=== PATIENT | female | born 1980 | race Caucasian/White ===

== ENCOUNTER 2018-03-10 01:47 | Inpatient (IN) | payer BC, SELFPAY ==
[2018-03-10] MEDS: Oxytocin 10 UNITS/ML Vial IM (03:09)
[2018-03-10 03:39] VITALS: BMI 31.9
--- NOTE | 2018-03-10 03:48 | HP.PCM_ITS ---
- Problem List (1) GDM (gestational diabetes mellitus), class A1 Status: Acute (2) History of macrosomia in in prior , currently Status: Acute (3) History of precipitous delivery Status: Acute (4) History of gestational diabetes in prior , currently Status: Acute (5) Advanced maternal age (AMA) in Status: Acute History Date of Admission: 03/10/18 Final TIFFANY: 03/08/18 Gestational age: 40 Weeks and 2 Days History of this : This is a 37 year-old, G [3], P [2002], at 40 weeks 2 days gestational age by first trimester U/S. Transfer of care at 29 weeks. Presented to L&D with complaint of SROM for clear fluid at 0100. Upon arrival to L&D patient in wheel chair and refusing to get out. Contractions every 2-3 minutes, strong, and breathing through contractions. Requesting natural childbirth, unmedicated. at bedside. Allergies lactose Allergy (Verified 03/10/18 03:40) Abd cramps/diarrhea Penicillins Allergy (Verified 03/10/18 03:40) Unknown Smoking Status: Never smoker Alcohol: None Number of Fetus(es): 1 Heart Tracin, moderate variability, accels, variable decel, Category 2 TOCO Analysis: Every 2-3 minutes, lasting 60-90 seconds, strong History Past Pregnancies: Past Pregnancies Delivery Date Name GA/Weeks Outcome Route Weight Infant Gender Labor Length Anesthesia Delivery Location Provider FOB Labs: RPR negative HIV negative HBsAG negative O positive GC/CT negative Rubella Immune GBS negative Expected Delivery Method: Spontaneous Vaginal Review of Systems Constitutional: Denies: Chills, Fever, Weight Change HEENT: Denies: Head Aches, Sinus Congestion, Sinus Drainage Cardiovascular: Denies: Chest Pain, Palpitations Respiratory: Denies: Cough, Shortness of breath at rest, Sputum production Gastrointestinal: Denies: Nausea, Vomiting Genitourinary: Denies: Dysuria Psychiatric: Denies: Anxiety, Depression, Homicidal Ideations, Suicidal Ideations Physical Exam General: Alert, Oriented x3 HEENT: Atraumatic, Normocephalic Cardiovascular: Regular rate, Regular Rhythm, No murmurs Lungs: Clear to auscultation, No rhonchi, No wheeze Abdomen: Gravid Extremities:: No edema Neurological: Deep Tendon Reflexes 2+/4 and Symmetrical. Negative for: Clonus [employer]: Normal external genitalia Estimated gestational size: Appropriate for gestational size Presentation: Cephalic Cervix Dilation (cm): 6 Station: -2 Effacement (%): 90 Assessment/Plan All Active Problems GDM (gestational diabetes mellitus), class A1 (Acute) History of macrosomia in infant in prior , currently (Acute) History of precipitous delivery (Acute) History of gestational diabetes in prior , currently (Acute) Advanced maternal age (AMA) in (Acute) This is a 37 year-old, G [3], P [2001], at 40 weeks 2 days gestational age. A: Active Labor Category 2 FHT P: 1) Admit to L&D. Labs and saline lock. Patient with informed refusal of IV. 2) Continuous monitoring due to current Category 2 FHT. Positional changes. 3) Anticipate vaginal delivery 4) collaborative physician. Kaci Saleh, JAEL, CNM
--- NOTE | 2018-03-10 04:03 | OP.PCM_ITS ---
- Problem List (1) GDM (gestational diabetes mellitus), class A1 Status: Acute (2) History of macrosomia in in prior , currently Status: Acute (3) History of precipitous delivery Status: Acute (4) History of gestational diabetes in prior , currently Status: Acute (5) Advanced maternal age (AMA) in Status: Acute (6) Vaginal delivery Status: Acute (7) First degree perineal laceration Status: Acute Vaginal Delivery Maternal Presentation: Active Labor, Spontaneous Rupture of Membranes Amniotic Membrane Rupture Type: Spontaneous Rupture of Membrane time: 0100 Amniotic Fluid Description: Clear Final TIFFANY: 03/08/18 Gestational age: 40 Weeks and 2 Days Date of Procedure: 03/10/18 Pre-Operative Diagnosis: Active Labor Post-Operative Diagnosis: Surgery/ Procedure Performed: Spontaneous Vaginal Delivery Type of Anesthesia: None Description of Procedure: Arrived on L&D with regular contractions and SROM at 0100. Requesting natural, unmedicated childbirth. Upon arrival refused vaginal exam per nursing staff. I arrived and vaginal exam 6cm/90%/-2. Patient progressed and began spontaneous pushing efforts, complete. of viable male over 1st degree perineal laceration without complications. 8,9, weight pending. Infant delivered and placed on maternal abdomen. Mouth and nares suctioned for secretions, spontaneous cry. Pitocin 10units IM once for active 3rd stage management. Cord clamped and cut after pulsations ceased by FOB. Placenta delivered with maternal effort, intact, 3 vessel cord via salma. Perineum, vagina, and cervix inspected, revealed 1st degree perineal laceration, repaired with 3.0 vicryl under no anesthesia. Well approximated and hemostatic. Fundus firm and hemos tasis achieved, 300ml EBL. initiated. Mom and baby stable, family bonding well. notified of delivery. Presentation: Vertex Placental Delivery Description: Spontaneous Placenta Disposition: [facility] Cord Vessel Description: 3 Vessels Cord Entanglement: None Estimated Blood Loss: 300 A gender: Male (1 minute): 8 (5 minute): 9 Episiotomy Description: None Laceration: Perineal Extension/lac, 1st degree Medications given after delivery: - - Pitocin 10 units IM Complications: None
[2018-03-10 04:46] LABS: Hematocrit 37.6 % (37-47); Hemoglobin 12.9 g/dl (12.0-15.0); Mean Corp Hgb Conc 34.3 g/gl (32-36); Mean Corpuscular Volume 84.5 fL (81-99); Mean Platelet Vol. 11.4 fl (6.2-12.0); Platelet Count 186 K/mm3 (150-450); RBC Distribution Width CV 14.5 % (11.6-14.6); RBC Distribution Width SD 44.7 fl (35.1-43.9); Red Blood Count 4.45 M/mm3 (4.2-5.4); White Blood Count 18.4 K/mm3 (4.4-11.0)
[2018-03-10 04:49] LABS: Scan Indicated on CBC? Y/N NO
[2018-03-10 05:35] LABS: Bedside Glucose 129 mg/dL (70-110)
[2018-03-10 05:57] VITALS: BP 126/71; PULSE 77; RESP 18; TEMP 36.8; O2SAT 97
[2018-03-10 08:00] VITALS: BP 117/70; PULSE 87; RESP 18; TEMP 36.3
[2018-03-10] MEDS: Acetaminophen 500 MG Tablet 1000 MG PO (08:40)
[2018-03-10] MEDS: Senna/Docusate Sodium 1 Tablet PO (09:00)
[2018-03-10 13:00] VITALS: BP 127/75; PULSE 90; RESP 18; TEMP 36.8
[2018-03-10 16:03] VITALS: BP 123/74; PULSE 72; RESP 16; TEMP 36.7; O2SAT 99
[2018-03-10 20:40] VITALS: BP 119/71; PULSE 94; RESP 16; TEMP 37.1
[2018-03-11] VITALS: BP 119/78; PULSE 85; RESP 16; TEMP 36.6
[2018-03-11 05:10] VITALS: BP 126/86; PULSE 66; RESP 16; TEMP 36.4
--- NOTE | 2018-03-11 08:51 | DCINST_ITS ---
Discharge Diet: No Restrictions Discharge Activity: Return to Normal Activity, May not drive while taking narcotic pain medications., May Shower May resume sexual activity in: 4-6 weeks Additional Activity Instructions:: Nothing in the vagina for 4-6 weeks. You may return to work/school in 6 weeks. Call your doctor if your incision/area has: Continuous Slow Oozing, Sudden Increased Bleeding, Increased Pain/ Swelling, Increased Redness, Foul Smelling Discharge Call your doctor if you observe: Fever of 101 or Higher, Inability to urinate, Inability to have a bowel movement, Using more than one pad per hour Additional Instructions: If you experience any of the following, contact your healthcare provider. * Bleeding that soaks a pad every hour for 2 hours * Fever 100.4 or higher * Unrelieved incision or abdominal pain * Swelling, redness, discharge or bleeding from your incision or episiotomy site * Your incision begins to separate * Problems urinating (including inability to urinate or burning while urinating). * Visual changes * Severe headache * Flu-like symptoms * Pain or redness in one of both of your breasts * Pain, warmth, tenderness or swelling in your legs, especially the calf area * Frequent nausea and vomiting * Symptoms of depression or anxiety If you experience any of the following, call 911 or go to the nearest Emergency Room. * Chest pain * Problems breathing * Seizure activity * Partial or complete paralysis of a body part, slurred speech, weakness or drooping of the face, or a sudden inability to walk or hold your balance Allergies/Adverse Reactions: Allergies lactose Allergy (Verified 03/10/18 03:40) Abd cramps/diarrhea Penicillins Allergy (Verified 03/10/18 03:40) Unknown Please Follow Up With: Kaci Saleh CNM When: Call to make an appointment with your provider in 2 weeks and 6 weeks. If you had elevated Blood Pressure or 4th degree laceration you will need to be seen in 2 weeks. Primary Care Physician: Care Physician,No Primary [Primary Care Provider] - Test Results: Test results from this visit will be discussed in further detail at your follow- up appointment, if applicable. Proposed Discharge Date: 03/11/18
[2018-03-11 10:35] VITALS: BP 130/83; PULSE 60; RESP 16; TEMP 36.3
--- NOTE | 2018-03-11 12:51 | PCM.PN.OB ---
Patient Problems: Active and Suspected Problems GDM (gestational diabetes mellitus), class A1 (Acute) History of macrosomia in in prior , currently (Acute) History of precipitous delivery (Acute) History of gestational diabetes in prior , currently (Acute) Advanced maternal age (AMA) in (Acute) Vaginal delivery (Acute) First degree perineal laceration (Acute) Subjective: Patient sitting up in bed, at this time. Denies any issues or complaints. Denies KHAN, scotoma, dizziness or issues with urination or ambulation. Desires discharge to home today. Objective: Nipples without cracks or blisters, no erythema Abdomen NT x 4 quadrants, FF midline 3FB below umbilicus +2/4 reflexes in LE, no edema, negative calf tenderness to palpation Scant rubra lochia - Physical Exam General: Alert, Oriented x3, Cooperative Lungs: Normal air movement Cardiovascular: Regular rate, Regular Rhythm Abdomen: Soft, Non Tender, Non-Distended Extremities: No edema, Capillary Refill Less than 3 Seconds Skin: No rashes Musculoskeletal: No Tenderness to Palpation of Joints or Extremities Neurological: Cranial nerves II-XII grossly intact Psych/Mental Status: Normal Affect, Appropriate, Alert and oriented to time, place, person, mood and affect Vital Signs Temp Pulse Resp BP Pulse Ox 97.4 F L 60 16 130/83 H 99 03/11/18 10:35 03/11/18 10:35 03/11/18 10:35 03/11/18 10:35 03/10/18 16:03 Oxygen Delivery Method Room Air Weight: 186 lb Body Mass Index (BMI) 31.9 Intake and Output for Last 24 Hours 03/09/18 03/10/18 03/11/18 23:59 23:59 23:59 Output Total 350 / 350 Balance -350 / -350 Medical Necessity - Tobacco Use Smoking Status: Never smoker Assessment/Plan All Active Problems GDM (gestational diabetes mellitus), class A1 (Acute) History of macrosomia in in prior , currently (Acute) History of precipitous delivery (Acute) History of gestational diabetes in prior , currently (Acute) Advanced maternal age (AMA) in (Acute) Vaginal delivery (Acute) First degree perineal laceration (Acute) 37 y/o now, PPD #1, Normal PP Course P: 1) Discharge to home pending discharge 2) PP anticipatory teaching done 3) RTC at 2 and 6 weeks PP for follow-up visits. Ana CANAS
[2018-03-11 14:00] VITALS: BP 125/67; PULSE 72; RESP 16; TEMP 36.6; O2SAT 98
[2018-03-11 14:55] VITALS: BP 125/67; PULSE 72; RESP 16; TEMP 36.6; O2SAT 98
== END 2018-03-11 16:00 | disposition home or self-care (01) | DRG 807 ==
PROVIDERS: Advanced Practice Midwife; Admitting Provider Obstetrics & Gynecology; Visit Provider Obstetrics & Gynecology
DX: O42.02 Full-term premature rupture of membranes, onset of labor within 24 hours of rupture (principal); Z37.0 Single live birth; O24.429 Gestational diabetes mellitus in childbirth, unspecified control; O70.0 First degree perineal laceration during delivery; Z3A.40 40 weeks gestation of pregnancy; Z87.59 Personal history of other complications of pregnancy, childbirth and the puerperium
CPT/HCPCS: 59025; 59050; 82962; 85027; 86850; 86900; 99218; G0378